=== PATIENT | male | born 1980 | race Caucasian/White ===

== ENCOUNTER 2025-02-16 10:11 | Inpatient (IN) ==
--- NOTE | 2025-02-16 10:18 | Emergency Department Note ---
Impression & Plan Complex laceration of face Admission ED Provider Note HPI: History obtained from patient. The patient is a 44-year-old gentleman who presents the emergency department with a facial injury. Patient presents as a trauma alert. Patient states he was using a handicapped teacher in his home garage when it kicked back up and hit him in the face. Patient sustained a large laceration to the left side of the face that crosses over the left side of the nose to the nasal bridge. Minimal active bleeding is noted on arrival. Patient is not having any issues breathing, he is alert and able to speak in full sentences on arrival. Patient denies any neck pain, denies any head injuries. *Cervical spine was cleared clinically at 10:15 AM, patient has full range of motion of the cervical spine without any limitation or pain ROS: - Per HPI Differential Diagnosis: Nasal bone fracture, maxillary fracture/orbital fracture/facial fracture, ocular injury, dental injury, amongst other potential pathologies. *Outpatient medications and allergy history reviewed. PRIMARY SURVEY: Airway-intact, patient speaks in full sentences Respiratory-clear bilateral breath sounds Circulation-2+ DP pulses bilaterally, 2+ radial pulses bilaterally Neurologic-patient is alert Exposure-large laceration to the left side of the face, otherwise no evidence of any open wounds or lacerations are noted Secondary survey: General: Alert HEENT: Normocephalic, trachea midline, laceration extending across the left side of the face horizontally with minimal active bleeding, measuring approximately 8 cm extending over the nasal bridge, uvula is midline, there is no evidence of any posterior pharyngeal erythema or swelling Eyes: Extraocular eye movement is intact, no scleral erythema Pulmonary: Clear to auscultation bilaterally, no wheezing Cardio: Regular rate and rhythm GI: Abdomen is soft to palpation : No suprapubic tenderness MSK: No evidence of trauma or malformation of the extremities, no edema Skin: No evidence of rash Neuro: Alert, no focal deficits Psychiatric: Cooperative INDEPENDENT INTERPRETATIONS: event technician: (As interpreted by myself): - An order was placed for continuous cardiac monitoring - Patient was noted to be in sinus rhythm with a rate of 95 Chest x-ray: (As interpreted by myself): No acute disease Interventions provided in ED: - Tdap, IV Unasyn, IV fluid bolus, IV morphine, IV Zofran Medical Decision Making: IV was established and lab work obtained, patient was placed on radiophone operator. Lab work shows no leukocytosis, hemoglobin is normal, platelet count is normal, CMP does not show any evidence of any critical findings. CT of the head does not show any evidence of any acute intracranial injury, CT imaging of the facial shows evidence of a comminuted bilateral nasal bone fracture as well as a depressed maxilla fracture on the left side. Patient denies any ocular injury, his exam of the eyes is grossly unremarkable. He states his vision is intact. He denies any foreign body sensation. I discussed the patient's presentation with on-call OMFS, Dr. Sorto, he did evaluate the patient at the bedside. Following his evaluation he recommended admission and operative intervention this afternoon. Patient was treated with IV Unasyn for infection prophylaxis, he was given IV morphine and IV Zofran here in the ED for pain. Tetanus was updated. Patient was in agreement for admission and he was placed for admission in stable condition for further management. Patient's presentation was discussed with the on-call hospitalist, Dr. Yepez. Consultants/Discussions held with other healthcare providers: - OMFSDr. Sorto - Hospitalist, Dr. Yepez Disposition discussion held by myself with: - Patient Diagnosis: 1. Facial laceration, acute 2. Comminuted bilateral nasal bone fracture, acute 3. Left-sided maxillary fracture, acute Disposition: Admission Kieran George DO Emergency Medicine Past Med/Surg History Problem List (Updated 02/16/25 @ 14:32 by Kieran George DO) Complex laceration of face (Acute) Complex laceration of face Nasal bones, open fracture Hyperlipidemia Medical History (Updated 02/16/25 @ 14:32 by Kieran George DO) Hyperlipidemia Surgical History Hx of appendectomy 1994 Family History Mother Breast cancer, Onset Age: 65 Diabetes Myasthenia gravis Grandmother (Maternal) Breast cancer Father Skin cancer Hypertension Denies family history of Ovarian cancer Prostate cancer Myocardial infarction Colorectal cancer Social History Smoking Status: Never smoker Second Hand Exposure: No; Do You Dip or Chew Tobacco: No; Hx Alcohol Use: Yes Alcohol Intake Frequency: 2-4 x/Month Alcohol Intake Frequency Comment: socially Hx Substance Use: No Preferred Language: Monegasque Communication Ability: Effective Visual Impairment: No Limitations Hearing Ability: Normal Photographic Process Attendant Required: No Beliefs That Will Affect Care: None marital status: Current Living Situation: Spouse current occupational status: employed 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 How many Children do You have: 0 Feels Safe at Home: Yes Childhood Exposure to Second-Hand Smoke: Yes Diet: regular Diet Comment: Regular caffeine: Yes during the past year weight has: remained stable Dental Care, Regularly: Yes Physical Activity Frequency: 1-2 Times per Week Physical Activity Frequency Comment: Irregular Seatbelt Use: always Sunscreen Use: Yes Assistive Devices: Glasses Allergies Allergies Allergy/AdvReac Type Severity Reaction Status Date / Time No Known Drug Allergies Allergy Unknown Unverified 12/20/23 09:52 Home Meds Home Medications Medication Instructions Recorded Confirmed atorvastatin 20 mg tablet 0 mg PO QPM 02/16/25 02/16/25 Results & Data (ED) Vital Signs Vital Signs - 24 hr 02/16/25 10:22 02/16/25 10:23 02/16/25 10:26 Temperature 36.5 C Temperature Source Oral Pulse Rate 98 H 95 H Pulse Rate [Apical] Pulse Rate from SpO2 Sensor Pulse Rhythm [Apical] Pulse Strength [Apical] Respiratory Rate 13 Respiratory Effort / Characteristics Respiratory Depth Respiratory Pattern Blood Pressure 154/100 H Blood Pressure [Left Arm] Blood Pressure Mean 118 Blood Pressure Mean [Left Arm] Blood Pressure Position [Left Arm] Pulse Oximetry 98 Oxygen Delivery Method Room Air Oxygen Flow Rate Sepsis Recent Fever Within 48 Hours No Sepsis New/Unexplained Change in Mental Status N/A Sepsis Action Taken by Nursing No Action Required 02/16/25 10:26 02/16/25 10:27 02/16/25 10:27 Temperature 36.5 C 36.5 C 36.5 C Temperature Source Oral Oral Pulse Rate 95 H Pulse Rate [Apical] 94 H 98 H Pulse Rate from SpO2 Sensor Pulse Rhythm [Apical] Pulse Strength [Apical] Respiratory Rate 17 20 17 Respiratory Effort / Characteristics Respiratory Depth Respiratory Pattern Blood Pressure 154/100 H Blood Pressure [Left Arm] 154/100 H 154/100 H Blood Pressure Mean Blood Pressure Mean [Left Arm] 118 118 Blood Pressure Position [Left Arm] Pulse Oximetry 98 98 98 Oxygen Delivery Method Room Air Room Air Room Air Oxygen Flow Rate 0 Sepsis Recent Fever Within 48 Hours Sepsis New/Unexplained Change in Mental Status Sepsis Action Taken by Nursing 02/16/25 10:57 02/16/25 10:58 02/16/25 11:20 Temperature Temperature Source Pulse Rate 97 H Pulse Rate [Apical] 90 Pulse Rate from SpO2 Sensor 98 H Pulse Rhythm [Apical] Regular Pulse Strength [Apical] Normal Respiratory Rate 15 20 Respiratory Effort / Characteristics Non-Labored Spontaneous Respiratory Depth Normal Respiratory Pattern Regular Blood Pressure 164/96 H Blood Pressure [Left Arm] 159/97 H Blood Pressure Mean 129 Blood Pressure Mean [Left Arm] 117 Blood Pressure Position [Left Arm] Lying Pulse Oximetry 97 96 Oxygen Delivery Method Room Air Oxygen Flow Rate Sepsis Recent Fever Within 48 Hours Sepsis New/Unexplained Change in Mental Status Sepsis Action Taken by Nursing 02/16/25 12:00 02/16/25 12:20 02/16/25 13:00 Temperature Temperature Source Pulse Rate Pulse Rate [Apical] 89 89 93 H Pulse Rate from SpO2 Sensor Pulse Rhythm [Apical] Regular Regular Pulse Strength [Apical] Normal Normal Respiratory Rate 20 22 Respiratory Effort / Characteristics Non-Labored Spontaneous Non-Labored Spontaneous Respiratory Depth Normal Normal Respiratory Pattern Regular Regular Blood Pressure Blood Pressure [Left Arm] 167/98 H 167/98 H 165/91 H Blood Pressure Mean Blood Pressure Mean [Left Arm] 121 121 115 Blood Pressure Position [Left Arm] Lying Lying Pulse Oximetry 98 96 Oxygen Delivery Method Room Air Room Air Oxygen Flow Rate Sepsis Recent Fever Within 48 Hours Sepsis New/Unexplained Change in Mental Status Sepsis Action Taken by Nursing 02/16/25 13:40 02/16/25 14:00 02/16/25 14:14 Temperature Temperature Source Pulse Rate Pulse Rate [Apical] 84 98 H Pulse Rate from SpO2 Sensor Pulse Rhythm [Apical] Pulse Strength [Apical] Respiratory Rate 12 16 Respiratory Effort / Characteristics Non-Labored Spontaneous Non-Labored Spontaneous Respiratory Depth Normal Normal Respiratory Pattern Blood Pressure Blood Pressure [Left Arm] 153/90 H 146/95 H Blood Pressure Mean Blood Pressure Mean [Left Arm] 111 112 Blood Pressure Position [Left Arm] Pulse Oximetry 98 98 Oxygen Delivery Method Room Air Room Air Room Air Oxygen Flow Rate Sepsis Recent Fever Within 48 Hours Sepsis New/Unexplained Change in Mental Status Sepsis Action Taken by Nursing Laboratory Data 02/16/25 10:22 02/16/25 10:22 Lab Results 02/16/25 Range/Units 10:22 WBC 5.47 (4.8-10.8) K/ul RBC 5.25 (4.70-6.10) M/uL Hgb 16.0 (14.0-18.0) g/dl Hct 44.6 (42.0-52.0) % MCV 85.0 (80.0-100.0) fL MCH 30.5 (25.0-34.0) pg MCHC 35.9 (32.0-36.0) g/dL RDW Std Deviation 37.8 (36.4-46.3) fL RDW Coeff of Savage 12.2 (11.5-14.5) % Plt Count 203 (130-400) K/uL MPV 10.7 (9.4-12.4) fL Immature Gran % (Auto) 0.2 % Neut % (Auto) 45.6 % Lymph % (Auto) 36.9 % Pratt % (Auto) 13.5 % Eos % (Auto) 2.9 % Baso % (Auto) 0.9 % Neut # (Auto) 2.49 (1.40-6.50) K/uL Lymph # (Auto) 2.02 (1.20-3.40) K/uL Pratt # (Auto) 0.74 H (0.11-0.59) K/uL Eos # (Auto) 0.16 (0.00-0.50) K/uL Baso # (Auto) 0.05 (0.00-0.20) K/uL Immature Gran # (Auto) 0.01 (0.01-0.20) K/uL Sodium 137 (136-145) mmol/L Potassium 3.4 L (3.5-5.1) mmol/L Chloride 103 (98-107) mmol/L Carbon Dioxide 26 (21-32) mmol/L Anion Gap 8 (3-11) BUN 13 (6-23) mg/dl Creatinine 1.08 (0.6-1.4) mg/dl Est Cr Clr Drug Dosing 87.3 ml/min eGFR 86.78 BUN/Creatinine Ratio 12.0 (10-20) Glucose 109 H (70-99(Fasting)) mg/dl Calcium 9.5 (8.6-10.3) mg/dl Administered Medications Discontinued Medications Diphtheria/Pertussis/Tetanus Vacc (Diphther/Tetan/Pertus Vaccine (Tdap, Adol/Adult) 0.5ml) 0.5 ml IM .ONCE ONE Stop: 02/16/25 10:45 Last Admin: 02/16/25 10:54 Dose: 0.5 ml Documented By: RACHEL Sodium Chloride (Nss) 500 mls @ 999 mls/hr IV .Q31M ONE Stop: 02/16/25 10:51 Last Admin: 02/16/25 10:54 Dose: 999 mls/hr Documented By: RACHEL Ampicillin Sodium/Sulbactam Sodium (Unasyn) 3,000 mg in 100 mls @ 200 mls/hr IV NOW STA Stop: 02/16/25 12:57 Last Infusion: 02/16/25 13:54 Dose: Infused Documented By: Admin: 02/16/25 13:06 Dose: 200 mls/hr Documented By: SHUN Morphine Sulfate (Morphine Sulfate 4 Mg/Ml 1 Ml Carp\Vial) 4 mg IV NOW STA Stop: 02/16/25 10:44 Last Admin: 02/16/25 10:54 Dose: 4 mg Documented By: RACHEL Ondansetron HCl (Ondansetron Inj 2 Mg/Ml 2 Ml Vial) 4 mg IV NOW STA Stop: 02/16/25 10:44 Last Admin: 02/16/25 10:54 Dose: 4 mg Documented By: RACHEL Imaging Data Radiologist's Impression: Chest X-Ray 02/16/25 00:00 XR chest 1V portable CLINICAL HISTORY: TRAUMA COMPARISON STUDY: None FINDINGS: Heart size and pulmonary vasculature are normal. No consolidation or pleural effusion. No pneumothorax. IMPRESSION: No acute findings. ACT 112: Negative or not required by law. Electronically signed by: Dickson Downs M.D. 02/16/2025 10:[address] 02/16/25 10:16 CT SCAN OF THE FACIAL BONES WITHOUT IV CONTRAST CLINICAL HISTORY: Left facial injury/laceration. COMPARISON STUDY: CT of the brain dated 06/28/2024 TECHNIQUE: High-resolution CT scan of the facial bones is performed. Images are reviewed in the axial, sagittal, and coronal planes. IV contrast was not administered for this examination. A dose lowering technique was utilized adhering to the principles of ALARA. FINDINGS: The skeletal structures are well mineralized. There are comminuted bilateral nasal bone fractures with displaced and depressed fragments. There is also a depressed fracture through the left frontal process of the maxilla. The bony nasal septum appears intact noting leftward deviation. No additional facial bone fracture is seen. The bony orbits are intact and the orbital contents are within normal limits. The zygomatic arches and pterygoid plates are preserved. The mandible is intact and the temporomandibular joints are maintained. There are no layering blood products within the paranasal sinuses. There is trace mucosal thickening and a 1.9 cm retention cyst in the left maxillary sinus. The remaining paranasal sinuses are clear. The mastoid air cells are well pneumatized. The visualized calvarium and upper cervical spine are maintained. Partially imaged brain parenchyma is within normal limits. There is left premalar soft tissue injury/laceration, as well as soft tissue edema overlying the nasal bones. IMPRESSION: 1. There are comminuted bilateral nasal bone fractures with displaced and depressed fragments. 2. There is also a depressed fracture of the left frontal process of the maxilla. 3. No additional facial bone fracture is seen. The bony orbits are intact. 4. Left premalar soft tissue injury/laceration. ACT 112: Negative or not required by law. Electronically signed by: Mahesh Phillip M.D. 02/16/2025 11:[address] 02/16/25 10:16 CT head/brain wo con CLINICAL HISTORY: facial injury/blunt trauma. TECHNIQUE: Multiple axial CT images of the head were obtained without contrast. A dose lowering technique was utilized adhering to the principles of ALARA. CT DOSE: 858.1 mGy.cm COMPARISON: 08/29/2023 FINDINGS: There is stable cavum septum pellucidum, anatomic variant. No intracranial hemorrhage seen. No mass effect, midline shift, or hydrocephalus. Nasal bone fracture is partially visualized. No skull fracture seen otherwise. IMPRESSION: 1. No acute intracranial findings. 2. Nasal bone fracture. ACT 112: Negative or not required by law. The above report was generated using voice recognition software. It may contain grammatical, syntax or spelling errors. Electronically signed by: Dickson Downs M.D. 02/16/2025 10:50 AM Discharge Plan Visit Data Chief Complaint: Trauma Stated Complaint: TRAUMA ALERT ED Provider: Kieran George Discharge Problem: Complex laceration of face Patient Disposition: Admitted As Inpatient Condition: Fair Discharge Instructions Interventions: ED Discharge Assessment Last Done: 02/16/25 14:14 Forms Stand Alone Forms: My [employer] Prescriptions Prescriptions: No Action atorvastatin 20 mg tablet 0 mg PO QPM Patient Comments: 02/16- last filled 12/25 30 day supply #30 Referrals Referrals: Taryn Ricci DO [Primary Care Provider] - Discharge Problem: Complex laceration of face Qualifiers: Encounter type: initial encounter Qualified Code(s): S01.91XA - Laceration without foreign body of unspecified part of head, initial encounter
--- NOTE | 2025-02-16 10:24 | XRay Report ---
XR chest 1V portable CLINICAL HISTORY: TRAUMA COMPARISON STUDY: None FINDINGS: Heart size and pulmonary vasculature are normal. No consolidation or pleural effusion. No p neumothorax. IMPRESSION: No acute findings. ACT 112: Negative or not required by law. Electronically signed by: Dickson Downs M.D. 02/16/2025 10:23 AM
[2025-02-16 10:39] LABS: Hematocrit (blood only) 44.6 % (42.0-52.0); Hemoglobin 16.0 g/dl (14.0-18.0); Immature Granulocytes # (auto) 0.01 K/uL (0.01-0.20); Immature Granulocytes % (auto) 0.2 %; Mean Corpuscular Hemoglobin 30.5 pg (25.0-34.0); Mean Corpuscular Volume 85.0 fL (80.0-100.0); Platelet Count 203 K/uL (130-400); RDW Standard Deviation 37.8 fL (36.4-46.3); Red Blood Count 5.25 M/uL (4.70-6.10); White Blood Count 5.47 K/ul (4.8-10.8)
--- NOTE | 2025-02-16 10:52 | CT Scan Report ---
CT head/brain wo con CLINICAL HISTORY: facial injury/blunt trauma. TECHNIQUE: Multiple axial CT images of the head were obtained without contrast. A dose lowering tech nique was utilized adhering to the principles of ALARA. CT DOSE: 858.1 mGy.cm COMPARISON: 08/29/2023 FINDINGS: There is stable cavum septum pellucidum, anatomic variant. No intracranial hemorrhage seen. No mass effect, midline shift, or hydrocephalus. Nasal bone fracture is partially visualized. No skull fracture seen otherwise. IMPRESSION: 1. No acute intracranial findings. 2. Nasal bone fracture. ACT 112: Negative or not required by law. The above report was generated using voice recognition software. It may contain grammatical, syntax o r spelling errors. Electronically signed by: Dickson Downs M.D. 02/16/2025 10:50 AM
[2025-02-16 10:53] LABS: Anion Gap 8.0 (3-11); Blood Urea Nitrogen 13.0 mg/dl (6-23); Calcium 9.5 mg/dl (8.6-10.3); Carbon Dioxide 26.0 mmol/L (21-32); Chloride 103.0 mmol/L (98-107); Creatinine Clr Calc Pharmacy 87.3 ml/min; Glucose 109.0 mg/dl (70-99(Fasting)); Potassium 3.4 mmol/L (3.5-5.1); Sodium 137.0 mmol/L (136-145)
[2025-02-16] MEDS: SODIUM CHLORIDE 0.9% 500 ML IV ONE (10:54)
[2025-02-16] MEDS: MoRPHine SULFATE 4 MG/ML 1 ML CARP\\VIAL IV STA (10:54)
[2025-02-16] MEDS: DIPHTHER/TETAN/PERTUS Vaccine (Tdap, Adol/Adult) 0.5mL IM ONE (10:54)
[2025-02-16] MEDS: ONDANSETRON INJ 2 MG/ML 2 ML VIAL IV STA (10:54)
--- NOTE | 2025-02-16 11:19 | CT Scan Report ---
CT SCAN OF THE FACIAL BONES WITHOUT IV CONTRAST CLINICAL HISTORY: Left facial injury/laceration. COMPARISON STUDY: CT of the brain dated 06/28/2024 TECHNIQUE: High-resolution CT scan of the facial bones is performed. Images are reviewed in the axia l, sagittal, and coronal planes. IV contrast was not administered for this examination. A dose lower ing technique was utilized adhering to the principles of ALARA. FINDINGS: The skeletal structures are well mineralized. There are comminuted bilateral nasal bone fra ctures with displaced and depressed fragments. There is also a depressed fracture through the left fr ontal process of the maxilla. The bony nasal septum appears intact noting leftward deviation. No daja tional facial bone fracture is seen. The bony orbits are intact and the orbital contents are within n ormal limits. The zygomatic arches and pterygoid plates are preserved. The mandible is intact and the temporomandibular joints are maintained. There are no layering blood products within the paranasal s inuses. There is trace mucosal thickening and a 1.9 cm retention cyst in the left maxillary sinus. Th e remaining paranasal sinuses are clear. The mastoid air cells are well pneumatized. The visualized c alvarium and upper cervical spine are maintained. Partially imaged brain parenchyma is within normal limits. There is left premalar soft tissue injury/laceration, as well as soft tissue edema overlying the nasal bones. IMPRESSION: 1. There are comminuted bilateral nasal bone fractures with displaced and depressed fragments. 2. There is also a depressed fracture of the left frontal process of the maxilla. 3. No additional facial bone fracture is seen. The bony orbits are intact. 4. Left premalar soft tissue injury/laceration. ACT 112: Negative or not required by law. Electronically signed by: Mahesh Phillip M.D. 02/16/2025 11:18 AM
[2025-02-16] MEDS: AMPICILLIN/SULBACTAM SOD 3,000 MG/100 ML BAG IV STA (13:06)
--- NOTE | 2025-02-16 13:25 | Oral/Maxillofacial Consult ---
Date of Consultation February 16, 2025 Assessment & Plan (1) Nasal bones, open fracture: (2) Complex laceration of face: left cheek 6 cm complex History of Present Illness History of Present Illness Oral Maxillofacial Surgery Exam The patient is a 44-year-old gentleman who presents the emergency department with a facial injury. Patient presents as a trauma alert. Patient states he was using a yarn handler in his home garage when it kicked back up and hit him in the face. Patient sustained a large laceration to the left side of the face that crosses over the left side of the nose to the nasal bridge. Minimal active bleeding is noted on arrival. Patient is not having any issues breathing, he is alert and able to speak in full sentences on arrival. Patient denies any neck pain, denies any head injuries. CT SCAN OF THE FACIAL BONES WITHOUT IV CONTRAST CLINICAL HISTORY: Left facial injury/laceration. FINDINGS: The skeletal structures are well mineralized. There are comminuted bilateral nasal bone fractures with displaced and depressed fragments. There is also a depressed fracture through the left frontal process of the maxilla. The bony nasal septum appears intact noting leftward deviation. No additional facial bone fracture is seen. The bony orbits are intact and the orbital contents are within normal limits. The zygomatic arches and pterygoid plates are preserved. The mandible is intact and the temporomandibular joints are maintained. There are no layering blood products within the paranasal sinuses. There is trace mucosal thickening and a 1.9 cm retention cyst in the left maxillary sinus. The remaining paranasal sinuses are clear. The mastoid air cells are well pneumatized. The visualized calvarium and upper cervical spine are maintained. Partially imaged brain parenchyma is within normal limits. There is left premalar soft tissue injury/laceration, as well as soft tissue edema overlying the nasal bones. IMPRESSION: 1. There are comminuted bilateral nasal bone fractures with displaced and depressed fragments. 2. There is also a depressed fracture of the left frontal process of the maxilla. 3. No additional facial bone fracture is seen. The bony orbits are intact. 4. Left premalar soft tissue injury/laceration. Soft tissue: A complex deep laceration from the bridge of the nose across the cheek below the eye 6 cm long and deep to muscle. Facial nerve is in tack. Head/Neck exam: Neck is supple, FROM, Able to extend and flex neck w/o difficulty, no masses, no abnormalities, no airway issues, Cervical spine was cleared clinically at 10:15 AM, patient has full range of motion of the cervical spine without any limitation or pain Treatment Plan: Set up with general anesthesia in hospital due to complexity of the procedure I reviewed the treatment plan and consent with the patient and his Understanding was expressed. Time was given for questions regarding the surgery, risks and post op care. Discussed alternative to treatment--procedure as planned, Do not do surgery Closed/open reduction of the nasal fracture, repair of the complex facial laceration. Risks discussed: Bleeding,Pain,swelling,infection, scaring , delayed healing, nerve injury to face,lips,tongue,chin area which could be permanent (rare). Nasal congestion, need for revision of the scar and nose. Home care reviewed: Wound care Follow up Splint removal Surgery to be set up this afternoon as an add on case Allergies Allergy/AdvReac Type Severity Reaction Status Date / Time No Known Drug Allergies Allergy Unknown Unverified 12/20/23 09:52 Home Medications Medication Instructions Recorded Confirmed Type atorvastatin 20 mg tablet 0 mg PO QPM 02/16/25 02/16/25 History Patient History Surgical History Hx of appendectomy Family History Mother Breast cancer, Onset Age: 65 Diabetes Myasthenia gravis Grandmother (Maternal) Breast cancer Father Skin cancer Hypertension Denies family history of Ovarian cancer Prostate cancer Myocardial infarction Colorectal cancer Social History Smoking Status: Never smoker Second Hand Exposure: No; Do You Dip or Chew Tobacco: No; Hx Alcohol Use: Yes Alcohol Intake Frequency: 2-4 x/Month Alcohol Intake Frequency Comment: socially Hx Substance Use: No Preferred Language: Guyanese Communication Ability: Effective Visual Impairment: No Limitations Hearing Ability: Normal Oil Expeller Operator Required: No Beliefs That Will Affect Care: None marital status: Current Living Situation: Spouse current occupational status: employed 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 How many Children do You have: 0 Feels Safe at Home: Yes Childhood Exposure to Second-Hand Smoke: Yes Diet: regular Diet Comment: Regular caffeine: Yes during the past year weight has: remained stable Dental Care, Regularly: Yes Physical Activity Frequency: 1-2 Times per Week Physical Activity Frequency Comment: Irregular Seatbelt Use: always Sunscreen Use: Yes Assistive Devices: Glasses Results & Data Vital Signs (Past 12 Hours) Vital Signs Temp Pulse Pulse Resp BP BP Pulse Ox 02/16/25 13:00 93 H 22 165/91 H 96 02/16/25 12:20 89 20 167/98 H 98 02/16/25 12:00 89 167/98 H 02/16/25 11:20 90 20 159/97 H 96 02/16/25 10:58 164/96 H 02/16/25 10:57 97 H 15 97 02/16/25 10:27 36.5 C 98 H 17 154/100 H 98 02/16/25 10:27 36.5 C 95 H 20 154/100 H 98 02/16/25 10:26 36.5 C 94 H 17 154/100 H 98 02/16/25 10:26 98 02/16/25 10:23 95 H 02/16/25 10:22 36.5 C 98 H 13 154/100 H O2 Del Method O2 Flow Rate 02/16/25 13:00 Room Air 02/16/25 12:20 Room Air 02/16/25 12:00 02/16/25 11:20 Room Air 02/16/25 10:58 02/16/25 10:57 02/16/25 10:27 Room Air 02/16/25 10:27 Room Air 0 02/16/25 10:26 Room Air 02/16/25 10:26 Room Air 02/16/25 10:23 02/16/25 10:22 PG Care Time/CCT Total # of Minutes Spent Total Time Spent with Patient: Total time spent is greater than 50% in coordination of care (as documented) at patient's floor/unit and/or counseling patient: Coding Level of Care Code 71194 OFFICE CONSULT LVL Diagnoses Open fracture of nasal bone, initial encounter S02.2XXB Encounter type: initial encounter Complex laceration of face, initial encounter S01.91XA Encounter type: initial encounter (1) Nasal bones, open fracture Encounter type: initial encounter Qualified Code(s): S02.2XXB - Fracture of nasal bones, initial encounter for open fracture (2) Complex laceration of face Encounter type: initial encounter Qualified Code(s): S01.91XA - Laceration without foreign body of unspecified part of head, initial encounter
--- NOTE | 2025-02-16 13:47 | History & Physical Report ---
Date of Service February 16, 2025 Assessment & Plan (1) Complex laceration of face: (2) Nasal bones, open fracture: (3) Hyperlipidemia: Plan Mr. Yovani Rosario ia a 44 yo male with PMH of hyperlipidemia. 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 large laceration of the left side of the face. cross over to the nose to the nasal bridge. his CT scan show comminuted b/l nasal bone fracture with displaced and depressed fragment. also found depressed fracture of the left frontal process of the maxilla. left premalara soft tissue injury patient seen by oral maxillary surgery Dr. Sorto, plan for close/open reduction of the nasal fracture and repair of the complex facial laceration. started on unasyn. 1. complex deep laceration from the bridge of the nose across the cheek 2. communicated b/l nasal bone fractures 3. depressed fracgture of the left frontal process of the maxillary 4. HLD on lipitor plan closed/open reduction of the nasal fracture repair of the complex facial laceration c/w unasyn. discussed avoid of sun in post-op period. History of Present Illness Chief Complaint: large laceration on left facial region facial cellulitis needing IV antibiotics nasal bone fracture Primary Care Provider: Taryn Ricci DO Mr. Yovani Rosario is a 44 yo male with PMH of hyperlipidemia. on 02/16/2025, he's presented to [facility] with trauma alert. he's was using a foundry hand in his home garage when it's kicked back up and hit him in the face he's has a large laceration to the left side of the face that cross of the left nose to the nasal bridge he has CT head which found nasal bone fracture, has had normal neck range of motion he's was s/p tetanus shot and IV unasyn. seen by billing specialist, Dr. Flaco Sorto, plan for surgery today on interview, he's denied chest pain, denied shortness of breath he's mentioned headache episode after receiving morphine. Allergies Allergy/AdvReac Type Severity Reaction Status Date / Time No Known Drug Allergies Allergy Unknown Unverified 12/20/23 09:52 Home Medications Medication Instructions Recorded Confirmed Type atorvastatin 20 mg tablet 0 mg PO QPM 02/16/25 02/16/25 History Past Med/Surg History Problem List (Updated 02/16/25 @ 13:36 by Flaco Sorto DMD) Complex laceration of face Nasal bones, open fracture Hyperlipidemia Surgical History Hx of appendectomy Family History Mother Breast cancer, Onset Age: 65 Diabetes Myasthenia gravis Grandmother (Maternal) Breast cancer Father Skin cancer Hypertension Denies family history of Ovarian cancer Prostate cancer Myocardial infarction Colorectal cancer Social History Smoking Status: Never smoker Second Hand Exposure: No; Do You Dip or Chew Tobacco: No; Hx Alcohol Use: Yes Alcohol Intake Frequency: 2-4 x/Month Alcohol Intake Frequency Comment: socially Hx Substance Use: No Preferred Language: Austrian Communication Ability: Effective Visual Impairment: No Limitations Hearing Ability: Normal Veneer 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 Required: No Beliefs That Will Affect Care: None marital status: Current Living Situation: Spouse current occupational status: employed 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 How many Children do You have: 0 Feels Safe at Home: Yes Childhood Exposure to Second-Hand Smoke: Yes Diet: regular Diet Comment: Regular caffeine: Yes during the past year weight has: remained stable Dental Care, Regularly: Yes Physical Activity Frequency: 1-2 Times per Week Physical Activity Frequency Comment: Irregular Seatbelt Use: always Sunscreen Use: Yes Assistive Devices: Glasses Review of Systems Review of Systems: Constitutional: No Weight Change, No Fever, No Chills, No Night Sweats, No Fatigue, No Malaise ENT/Mouth: No Hearing Changes, No Ear Pain, No Nasal Congestion, No Sinus Pain, No Hoarseness, No sore throat, No Rhinorrhea, No Swallowing Difficulty Eyes: No Eye Pain, No Swelling, No Redness, No Foreign Body, No Discharge, No Vision Changes Cardiovascular: No Chest Pain, No SOB, No PND, No Dyspnea on Exertion,No Claudication, No Edema, No Palpitations Respiratory: No Cough, No Sputum, No Wheezing, No Smoke Exposure, No Dyspnea Gastrointestinal: No Nausea, No Vomiting, No Diarrhea, No Constipation, No Pain, No Heartburn, No Anorexia, No Dysphagia, No Hematochezia, No Melena, No Flatulence, No Jaundice Skin: No Skin Lesions, No Pruritis, No Hair Changes, No Breast/Skin Changes, No Nipple Discharge Neuro: No Weakness, No Numbness, No Paresthesias, No Loss of Consciousness, No Syncope, No Dizziness, No Headache, No Coordination Changes, No Recent Falls Psych: No Anxiety/Panic, No Depression, No Insomnia, No Personality Changes, No Delusions, No Rumination, No SI/HI/AH/VH, No Social Issues, No Memory Changes, No Violence/Abuse Hx., No Eating Concerns Physical Exam Physical Exam: VITALS: Reviewed. WEIGHT/BMI reviewed. GEN: Healthy appearing, well-developed, NAD. PSYCH: Good Judgment. AOx3. Normal memory, mood, and affect. HEENT -Head: NC/AT; + for large laceration in the left side of the face Neuro: AAOx3; following command -Nose: Normal nares. NECK: Supple, with no masses. CV: RRR, no m/r/g. LUNGS: CTAB, no w/r/c. ABD: Soft, NT/ND, NBS, no masses or organomegaly. : N/A SKIN: Warm, well perfused. No skin rashes or abnormal lesions. MSK: No deformities, Normal gait. EXT: No clubbing, cyanosis, or edema. Results & Data Results & Data Vital Signs (Past 12 Hours) Vital Signs Temp Pulse Pulse Resp BP BP Pulse Ox 02/16/25 13:00 93 H 22 165/91 H 96 02/16/25 12:20 89 20 167/98 H 98 02/16/25 12:00 89 167/98 H 02/16/25 11:20 90 20 159/97 H 96 02/16/25 10:58 164/96 H 02/16/25 10:57 97 H 15 97 02/16/25 10:27 36.5 C 98 H 17 154/100 H 98 02/16/25 10:27 36.5 C 95 H 20 154/100 H 98 02/16/25 10:26 36.5 C 94 H 17 154/100 H 98 02/16/25 10:26 98 02/16/25 10:23 95 H 02/16/25 10:22 36.5 C 98 H 13 154/100 H O2 Del Method O2 Flow Rate 02/16/25 13:00 Room Air 02/16/25 12:20 Room Air 02/16/25 12:00 02/16/25 11:20 Room Air 02/16/25 10:58 02/16/25 10:57 02/16/25 10:27 Room Air 02/16/25 10:27 Room Air 0 02/16/25 10:26 Room Air 02/16/25 10:26 Room Air 02/16/25 10:23 02/16/25 10:22 Laboratory Results Laboratory Results - last 72 hr 02/16/25 10:22 WBC 5.47 RBC 5.25 Hgb 16.0 Hct 44.6 MCV 85.0 MCH 30.5 MCHC 35.9 RDW Std Deviation 37.8 RDW Coeff of [place] 12.2 Plt Count 203 MPV 10.7 Immature Gran % (Auto) 0.2 Neut % (Auto) 45.6 Lymph % (Auto) 36.9 [place] % (Auto) 13.5 Eos % (Auto) 2.9 Baso % (Auto) 0.9 Neut # (Auto) 2.49 Lymph # (Auto) 2.02 [place] # (Auto) 0.74 H Eos # (Auto) 0.16 Baso # (Auto) 0.05 Immature Gran # (Auto) 0.01 Sodium 137 Potassium 3.4 L Chloride 103 Carbon Dioxide 26 Anion Gap 8 BUN 13 Creatinine 1.08 Est Cr Clr Drug Dosing 87.3 eGFR 86.78 BUN/Creatinine Ratio 12.0 Glucose 109 H Calcium 9.5 Diagnostic Findings Laboratory Results WBC 5.47 K/ul (4.8-10.8) 02/16/25 10:22 RBC 5.25 M/uL (4.70-6.10) 02/16/25 10:22 Hgb 16.0 g/dl (14.0-18.0) 02/16/25 10:22 Hct 44.6 % (42.0-52.0) 02/16/25 10:22 MCV 85.0 fL (80.0-100.0) 02/16/25 10:22 MCH 30.5 pg (25.0-34.0) 02/16/25 10:22 MCHC 35.9 g/dL (32.0-36.0) 02/16/25 10:22 RDW Std Deviation 37.8 fL (36.4-46.3) 02/16/25 10:22 RDW Coeff of [place] 12.2 % (11.5-14.5) 02/16/25 10:22 Plt Count 203 K/uL (130-400) 02/16/25 10:22 MPV 10.7 fL (9.4-12.4) 02/16/25 10:22 Immature Gran % (Auto) 0.2 % 02/16/25 10:22 Neut % (Auto) 45.6 % 02/16/25 10:22 Lymph % (Auto) 36.9 % 02/16/25 10:22 [place] % (Auto) 13.5 % 02/16/25 10:22 Eos % (Auto) 2.9 % 02/16/25 10:22 Baso % (Auto) 0.9 % 02/16/25 10:22 Neut # (Auto) 2.49 K/uL (1.40-6.50) 02/16/25 10:22 Lymph # (Auto) 2.02 K/uL (1.20-3.40) 02/16/25 10:22 [place] # (Auto) 0.74 K/uL (0.11-0.59) H 02/16/25 10:22 Eos # (Auto) 0.16 K/uL (0.00-0.50) 02/16/25 10:22 Baso # (Auto) 0.05 K/uL (0.00-0.20) 02/16/25 10:22 Immature Gran # (Auto) 0.01 K/uL (0.01-0.20) 02/16/25 10:22 Sodium 137 mmol/L (136-145) 02/16/25 10:22 Potassium 3.4 mmol/L (3.5-5.1) L 02/16/25 10:22 Chloride 103 mmol/L (98-107) 02/16/25 10:22 Carbon Dioxide 26 mmol/L (21-32) 02/16/25 10:22 Anion Gap 8 (3-11) 02/16/25 10:22 BUN 13 mg/dl (6-23) 02/16/25 10:22 Creatinine 1.08 mg/dl (0.6-1.4) 02/16/25 10:22 Est Cr Clr Drug Dosing 87.3 ml/min 02/16/25 10:22 eGFR 86.78 02/16/25 10:22 BUN/Creatinine Ratio 12.0 (10-20) 02/16/25 10:22 Glucose 109 mg/dl (70-99(Fasting)) H 02/16/25 10:22 Calcium 9.5 mg/dl (8.6-10.3) 02/16/25 10:22 Impressions Chest X-Ray 02/16/25 00:00 XR chest 1V portable CLINICAL HISTORY: TRAUMA COMPARISON STUDY: None FINDINGS: Heart size and pulmonary vasculature are normal. No consolidation or pleural effusion. No pneumothorax. IMPRESSION: No acute findings. ACT 112: Negative or not required by law. Electronically signed by: Dickson Downs M.D. 02/16/2025 10:[address] 02/16/25 10:16 CT SCAN OF THE FACIAL BONES WITHOUT IV CONTRAST CLINICAL HISTORY: Left facial injury/laceration. COMPARISON STUDY: CT of the brain dated 06/28/2024 TECHNIQUE: High-resolution CT scan of the facial bones is performed. Images are reviewed in the axial, sagittal, and coronal planes. IV contrast was not administered for this examination. A dose lowering technique was utilized adhering to the principles of ALARA. FINDINGS: The skeletal structures are well mineralized. There are comminuted bilateral nasal bone fractures with displaced and depressed fragments. There is also a depressed fracture through the left frontal process of the maxilla. The bony nasal septum appears intact noting leftward deviation. No additional facial bone fracture is seen. The bony orbits are intact and the orbital contents are within normal limits. The zygomatic arches and pterygoid plates are preserved. The mandible is intact and the temporomandibular joints are maintained. There are no layering blood products within the paranasal sinuses. There is trace mucosal thickening and a 1.9 cm retention cyst in the left maxillary sinus. The remaining paranasal sinuses are clear. The mastoid air cells are well pneumatized. The visualized calvarium and upper cervical spine are maintained. Partially imaged brain parenchyma is within normal limits. There is left premalar soft tissue injury/laceration, as well as soft tissue edema overlying the nasal bones. IMPRESSION: 1. There are comminuted bilateral nasal bone fractures with displaced and depressed fragments. 2. There is also a depressed fracture of the left frontal process of the maxilla. 3. No additional facial bone fracture is seen. The bony orbits are intact. 4. Left premalar soft tissue injury/laceration. ACT 112: Negative or not required by law. Electronically signed by: Mahesh Phillip M.D. 02/16/2025 11:[address] 02/16/25 10:16 CT head/brain wo con CLINICAL HISTORY: facial injury/blunt trauma. TECHNIQUE: Multiple axial CT images of the head were obtained without contrast. A dose lowering technique was utilized adhering to the principles of ALARA. CT DOSE: 858.1 mGy.cm COMPARISON: 08/29/2023 FINDINGS: There is stable cavum septum pellucidum, anatomic variant. No intracranial hemorrhage seen. No mass effect, midline shift, or hydrocephalus. Nasal bone fracture is partially visualized. No skull fracture seen otherwise. IMPRESSION: 1. No acute intracranial findings. 2. Nasal bone fracture. ACT 112: Negative or not required by law. The above report was generated using voice recognition software. It may contain grammatical, syntax or spelling errors. Electronically signed by: Dickson Downs M.D. 02/16/2025 10:50 AM Medications Administered Current Inpatient Medications Ampicillin Sodium/Sulbactam Sodium (Unasyn) 1,500 mg in 100 mls @ 200 mls/hr IV Q6H ANGELA; Protocol Stop: 02/23/25 18:29 PG Care Time/CCT Total # of Minutes Spent Total Time Spent with Patient: Total time spent is greater than 50% in coordination of care (as documented) at patient's floor/unit and/or counseling patient: Coding Level of Care Code 79788 INT INP/OBS CARE 2/55MIN Diagnoses Complex laceration of face, initial encounter S01.91XA Encounter type: initial encounter Open fracture of nasal bone, initial encounter S02.2XXB Encounter type: initial encounter Hyperlipidemia E78.5 Time Spent (min) 55 (1) Complex laceration of face Encounter type: initial encounter Qualified Code(s): S01.91XA - Laceration without foreign body of unspecified part of head, initial encounter (2) Nasal bones, open fracture Encounter type: initial encounter Qualified Code(s): S02.2XXB - Fracture of nasal bones, initial encounter for open fracture
[2025-02-16] MEDS: LACTATED RINGER'S 1,000 ML IV SCH (14:32)
[2025-02-16] MEDS ORDERED: ONDANSETRON INJ 2 MG/ML 2 ML VIAL ONE (14:44)
[2025-02-16] MEDS ORDERED: MIDAZOLAM HCL 1 MG/ML 2ML VIAL ONE (14:44)
[2025-02-16] MEDS ORDERED: DEXAMETHASONE SOD INJ 4 MG/ML VIAL ONE (14:44)
[2025-02-16] MEDS ORDERED: ROCURONIUM BROMIDE 10 MG/ML 5 ML VIAL IV ONE (14:44)
[2025-02-16] MEDS ORDERED: GLYCOPYRROLATE 0.2 MG/ML VIAL ONE (14:44)
[2025-02-16] MEDS ORDERED: LIDOCAINE 2% 2 ML VIAL/AMP(20MG/ML) INFIL ONE (14:44)
[2025-02-16] MEDS ORDERED: PROPOFOL IV EMULSION 10 MG/ML 20 ML VIAL IV ONE (14:44)
[2025-02-16] MEDS ORDERED: SUGAMMADEX SODIUM 200 MG/2 ML VIAL IV ONE (14:47)
[2025-02-16] MEDS ORDERED: HYDROmorphone INJ 1 MG/ML SYRINGE IV PRN (15:00)
[2025-02-16] MEDS ORDERED: PROMETHAZINE HCL 6.25 MG in SODIUM CHLORIDE 0.9% 50 ML IV PRN (15:00)
[2025-02-16] MEDS ORDERED: ATROPINE SULFATE 0.1 MG/ML 10ML SYR IV PRN (15:00)
[2025-02-16] MEDS ORDERED: ONDANSETRON INJ 2 MG/ML 2 ML VIAL IV PRN (15:00)
--- NOTE | 2025-02-16 15:03 | Anesthesiology Consultation ---
Date of Service February 16, 2025 Assessment & Plan (1) Encounter for pre-operative examination: Chart Review Chart Review: Acceptable Risk for Surgery and Patient NOT seen in Pre Admission Testing Consults Requested none History Surgery Operation Date: 02/16/25 13:10 Proposed Procedures p Closed Nasal Reduction - Flaco Sorto, DMD s Repair Left Complex Facial Lacerations - Flaco Sorto, DMD Height/Weight Height: 5 ft 9 in Weight: 73.4 kg Allergies Allergy/AdvReac Type Severity Reaction Status Date / Time No Known Drug Allergies Allergy Unknown Verified 02/16/25 14:30 Medications Home Medications Medication Instructions Recorded Confirmed Last Taken atorvastatin 20 mg tablet 0 mg PO QPM 02/16/25 02/16/25 Unknown Active Medications Generic Name Dose Route Start Last Admin Trade Name Freq PRN Reason Stop Dose Admin Lactated Ringer's 1,000 mls @ 15 mls/hr 02/16/25 14:45 02/16/25 14:32 Lr IV 02/19/25 14:44 15 mls/hr .Q24H ANGELA Administration NPO Date Last Intake of Fluids: 02/16/25 Time Last Intake of Fluids: 08:00 Last Intake of Fluids Comment: Mountain Dew Date Last Intake of Solids: 02/16/25 Time Last Intake of Solids: 19:00 Past Medical History Medical History (Updated 02/16/25 @ 15:03 by Matty Herrera MD) Encounter for pre-operative examination Hyperlipidemia Exercise / Class Metabolic Activity 1 > 8 Run/Swim/Ski/Tennis Past Family History Family History Mother , from breast cancer Breast cancer, Onset Age: 65 Diabetes Myasthenia gravis Grandmother (Maternal) Breast cancer Father Skin cancer Hypertension Denies family history of Ovarian cancer Prostate cancer Myocardial infarction Colorectal cancer Past Surgical History Surgical History Hx of appendectomy 1994 Social History Smoking Status: Never smoker Do You Dip or Chew Tobacco: No Hx Alcohol Use: Yes alcohol intake frequency: holidays/special occasions only Hx Substance Use: No Physical Exam Vital Signs Last Vital Signs Temp 36.9 C 02/16/25 14:26 Pulse 98 H 02/16/25 14:26 Resp 20 02/16/25 14:26 BP 155/94 H 02/16/25 14:26 Pulse Ox 96 02/16/25 14:26 O2 Del Method Room Air 02/16/25 14:26 O2 Flow Rate 0 02/16/25 10:27 Testing Laboratory Results 02/16/25 10:22 02/16/25 10:22
--- NOTE | 2025-02-16 16:50 | Post Operative Brief Note ---
PG Immediate Post Op with CF Date of Surgery February 16, 2025 Pre & Post Diagnosis Operation Date: 02/16/25 13:10 Pre-Op Diagnosis: Left facial lacerations, nasal fracture I identified the patient and participated in the time-out.: Yes Procedure Operation Date: 02/16/25 13:10 Actual Procedures p Closed Nasal Reduction(Not Applicable) - Flaco Sorto DMD s Repair Left Complex Facial Lacerations(Left) - Flaco Sorto DMD Surgeon Flaco Sorto DMD Research Engineer Marine Equipment none Estimated Blood Loss 20 Findings Consistent with Post-Op Diagnosis 9 cm complex facial and nasal laceration open fracture of the nose Anesthesia Type General Complications none Disposition Accompanied Patient To Recovery: Yes
[2025-02-16] MEDS: BUPIVACAINE/EPINEPHRINE 0.5% 1:200,000 1.8 ML CARP ONE (16:56)
[2025-02-16] MEDS: OXYMETAZOLINE 0.05% 30 ML BTL ONE (16:57)
[2025-02-16] MEDS: EPINEPHrine INJ 1 MG/ML AMP ONE (16:58)
[2025-02-16] MEDS: LIDOCAINE 4% INH SOLN 4 ML BTL ONE (16:58)
[2025-02-16] MEDS: BACITRACIN OINT 14 GM TUBE ONE (16:59)
--- NOTE | 2025-02-16 17:35 | Anesthesiology Progress Note ---
Date of Service February 16, 2025 Anesthesia Post Procedure Vital Signs Vital Signs: Temp Pulse Pulse Resp BP BP Pulse Ox 02/16/25 17:26 02/16/25 17:20 36.6 C 85 17 120/80 93 02/16/25 17:10 88 17 122/83 96 02/16/25 17:00 81 23 120/80 95 02/16/25 16:52 36.0 C L 70 12 105/60 97 02/16/25 14:26 36.9 C 98 H 20 155/94 H 96 02/16/25 14:14 02/16/25 14:00 98 H 16 146/95 H 98 02/16/25 13:40 84 12 153/90 H 98 02/16/25 13:00 93 H 22 165/91 H 96 02/16/25 12:20 89 20 167/98 H 98 02/16/25 12:00 89 167/98 H 02/16/25 11:20 90 20 159/97 H 96 02/16/25 10:58 164/96 H 02/16/25 10:57 97 H 15 97 02/16/25 10:27 36.5 C 98 H 17 154/100 H 98 02/16/25 10:27 36.5 C 95 H 20 154/100 H 98 02/16/25 10:26 36.5 C 94 H 17 154/100 H 98 02/16/25 10:26 98 02/16/25 10:23 95 H 02/16/25 10:22 36.5 C 98 H 13 154/100 H Pulse Ox O2 Del Method O2 Del Method O2 Flow Rate 02/16/25 17:26 95 Room Air 02/16/25 17:20 Room Air 02/16/25 17:10 Room Air 02/16/25 17:00 Room Air 02/16/25 16:52 Oxymask 6 02/16/25 14:26 Room Air 02/16/25 14:14 Room Air 02/16/25 14:00 Room Air 02/16/25 13:40 Room Air 02/16/25 13:00 Room Air 02/16/25 12:20 Room Air 02/16/25 12:00 02/16/25 11:20 Room Air 02/16/25 10:58 02/16/25 10:57 08/18/25 10:27 Room Air 02/16/25 10:27 Room Air 0 02/16/25 10:26 Room Air 02/16/25 10:26 Room Air 02/16/25 10:23 02/16/25 10:22 Pain Intensity Left Medial Face: Pain Intensity: 5 Transfer of Care Handoff Completed per policy Notes Mental Status: alert / awake / arousable and participated in evaluation Patient Amnestic to Procedure: Yes Nausea / Vomiting: adequately controlled Pain: adequately controlled Airway Patency, RR, SpO2: stable & adequate BP & HR: stable & adequate Hydration State: stable & adequate Anesthetic Complications: no major complications apparent and Pt Satisfied with anesthetic care
[2025-02-16] MEDS: HYDROCODONE/ACETAMOPHEN 5/325MG TAB PO PRN (18:05)
[2025-02-16] MEDS: AMPICILLIN/SULBACTAM SOD 3,000 MG/100 ML BAG IV SCH (19:36)
[2025-02-16] MEDS: ATORVASTATIN 10 MG TAB PO SCH (20:24)
[2025-02-16] MEDS: OXYMETAZOLINE 0.05% 30 ML BTL NAE PRN (20:24)
[2025-02-17] MEDS: IBUPROFEN 200 MG TAB PO PRN (00:11)
[2025-02-17 03:05] VITALS: RESP 16
[2025-02-17 06:51] LABS: Hematocrit (blood only) 38.5 % (42.0-52.0); Hemoglobin 13.7 g/dl (14.0-18.0); Mean Corpuscular Hemoglobin 30.6 pg (25.0-34.0); Mean Corpuscular Volume 86.1 fL (80.0-100.0); Platelet Count 197 K/uL (130-400); RDW Standard Deviation 39.0 fL (36.4-46.3); Red Blood Count 4.47 M/uL (4.70-6.10); White Blood Count 12.47 K/ul (4.8-10.8)
[2025-02-17 07:08] LABS: Alanine Aminotransferase 21.0 U/L (7-52); Albumin Globulin Ratio 1.5 (0.9-2); Alkaline Phosphatase 84.0 U/L (34-104); Anion Gap 7.0 (3-11); Bilirubin,Total 1.0 mg/dl (0.2-1.0); Blood Urea Nitrogen 13.0 mg/dl (6-23); Calcium 8.9 mg/dl (8.6-10.3); Carbon Dioxide 28.0 mmol/L (21-32); Chloride 102.0 mmol/L (98-107); Creatinine Clr Calc Pharmacy 88.9 ml/min; Globulin 2.6 gm/dl (2.5-4.0); Glucose 133.0 mg/dl (70-99(Fasting)); Potassium 4.0 mmol/L (3.5-5.1); Sodium 137.0 mmol/L (136-145); Total Protein 6.5 gm/dl (6.0-8.3)
--- NOTE | 2025-02-17 09:37 | Operative Report ---
PG Post Operative Report Pre & Post Diagnosis Operation Date: 02/16/25 13:10 Pre-Op Diagnosis: Left facial lacerations, nasal fracture Post-Op Diagnosis: Left facial lacerations, nasal fracture I identified the patient and participated in the time-out.: Yes Procedure Operation Date: 02/16/25 13:10 Actual Procedures p Closed Nasal Reduction(Not Applicable) - Flaco Sorto DMD s Repair Left Complex Facial Lacerations(Left) - Flaco Sorto DMD Surgeon Flaco Sorto, ESTHER Retail Store Assistant none Estimated Blood Loss 20 Findings Consistent with Post-Op Diagnosis Specimens none Anesthesia Type General Complications none Disposition Accompanied Patient To Recovery: Yes Indications 9 cm complex left facial laceration open treatment of nasal bone fractures Description of Procedure Operative report CPT 60307 opened reduction of nasal fracture with stabilization splint OEC03--B94.2XXB UNZ71--D60.8XA repair complex 9 cm cheek laceration repair with foreign body p resent CPT 07831 for the first 7.5 cm of a 9 cm laceration (complex) CPT 95470 for the remaining 1.5 cm Once cleared for surgery general anesthesia was achieved, the eyes were protected by the anesthesia dept criteria. A time out was take for patient ID, equipment and position verification once all agreed the procedure began. Local anesthesia was given into the area using Marcaine with a vasoconstrictor ( appox 6 ml ). Once a surgical level of anesthesia was obtained and the local anesthesia was given time for the blocks the surgery was started. I turned my attention to the 9 cm complex laceration left cheek/nasal area. Facial laceration repair: The repair of a 9 cm complex irregular laceration involving the bridge of the nose deep to the nasal bone and continuing across the cheek deep to muscles for a total of 9 cm. The margins were abraded by the universal grinder operator brushes of the hand tool I reprepped the laceration and irrigated with an NS then turned my attention to the laceration. The laceration was a complex 9 cm long irregular wound. It was very irregular and deep, the muscle was exposed as was the bone. I used an electrocautery instrument and cauterized any bleeders. The wound was irrigated and scrubbed. I then inspected the bone and found displacement of the left nasal and maxillary bones as was seen on the CT scan. I will address the nasal fracture after the repair of the complex laceration. The closure of the laceration was now started using 5-0 Vicryl suture to line up the deep muscles and periosteum. Once I accomplished this the sub-q and skin was aligned up very nicely with a 6- 0 nylon suture. A very nice cosmetic closure of this irregular laceration was achieved. Steri Strips were placed. Description of Procedure for the open reduction of the fractured nose Operative report for CPT 59597 opened reduction of nasal fracture with stabilization splint QCU60--P74.2XXB Diagnosis: Displaced opened fracture of nasal bones Procedure: Opened reduction of nasal bone fracture Operation: I turned my attention to the nasal bones the right/left nasal bones were impacted due to the overall depression and flatting of the nasal bridge. As a result of the injury the bridge was depressed and the right nasal bone appeared to be depressed outward while the left was crushed inwards. Given the the laceration exposed the left nasal bones the extent of the left side fractures were seen clinically. During the closure of the laceration I was able to use sutures to close the soft tissue over the fractured bone. While doing the soft tissue closure I used an epinephrine solution with wetted gauze packing and inserted into the nose to help limit bleeding during the manipulation. Now using a flat elevator I was able to apply upward and lateral pressure while manipulating the bone intranasal to achieve an anatomic form to the bridge, right and left side of the nasal bone fractures. I now turned my attention to the left side of the nasal fracture and looking directly at the fractured bones and using the nasal elevator intranasal I was able to apply intra nasal pressure to left depressed nasal bone in order to reposition the left side outwards. Once both sides were reduced the nose was now symmetric. The septum and columella looked to be well aligned. I was pleased with the anatomic reduction and stability of the fractures. I inspected intranasal, all the mucosal tissue were all WNL and I irrigated any clots and suctioned the throat. Bleeding was minimal. I now completed the facial/nasal laceration repair (see above) Once the laceration was completed and the bone of the nose was repositioned the Hanover splint was placed. Hanover splint placement: Finally a nasal splint (Hanover splint) was modified and placed/ taped into place as per protocol. Clinically the nose and septum were lined up very well. I inspected the nose to insure all bleeding was controlled and Jaylan splint in place. Completion: I removed the throat pack and suctioned the throat. All instrument and sponge count was correct. The patient was allowed to awake from the anesthesia. Once full awake the anesthesia tube was removed and the patient was taken to the recovery room with all vital sign stable. The patient tolerated the surgery very well. Post op plan: I will follow in my office, Rx and instructions will be given upon discharge. Post op follow up set up for Jaylan splint removal in my office Once the case was completed I inspected the sites to insure all bleeding was controlled. the patient was allowed to awake from the anesthesia. Once full awake the anesthesia tube was removed and the patient was taken to the recovery room with all vital sign stable. The patient tolerated the surgery very well. I will follow the patient in my office, Rx and instructions will be given upon discharge. I attest to the content of the Intraoperative Record and any orders documented therein. Any exceptions are noted below.
[2025-02-17 11:27] VITALS: TEMP 98.2
--- NOTE | 2025-02-17 12:47 | Progress Note ---
Date of Service February 17, 2025 Assessment & Plan Admission and Anticipated Discharge Date Admission Date: February 16, 2025 Subjective Post OP note for facial lacerations at 24 hours The repaired laceration looks great. The tissue is soft and the scar has excellent color match. The wound edges are very flat without hypertrophy. Over all the result is excellent and the patient is very please. The nasal fracture repair looks good and the splint is stable. He will be coming to my office on Feb 19 at 3:30 for splint removal and wound check. He is OK for discharge from oral surgery point of view I have ordered discharge antibiotics and pain meds. I see no sign of infection or wound healing issues. Reviewed home care RTC to see Dr Sorto Feb 19 at 3:30 Results & Data Vital Signs (Past 12 Hours) Vital Signs Temp Pulse Pulse Resp BP BP Pulse Ox 02/17/25 11:27 36.8 C 94 H 16 124/65 96 02/17/25 07:39 36.6 C 78 16 127/72 97 02/17/25 07:31 02/17/25 07:15 60 02/17/25 03:04 36.8 C 76 16 130/77 96 O2 Del Method 02/17/25 11:27 Room Air 02/17/25 07:39 Room Air 02/17/25 07:31 Room Air 02/17/25 07:15 02/17/25 03:04 Room Air PG Care Time/CCT Total # of Minutes Spent Total Time Spent with Patient: Total time spent is greater than 50% in coordination of care (as documented) at patient's floor/unit and/or counseling patient: Coding Level of Care Code None
[2025-02-17 15:09] VITALS: BP 125/68; PULSE 78; O2SAT 97
--- NOTE | 2025-02-17 15:54 | Discharge Summary ---
Discharge Summary Date of Service February 17, 2025 Principal Dx & Hospital Course #1 = Principal Diagnosis (1) Complex laceration of face: patient has hyperlipidemia and on 02/16 has large left side facial laceration and nasal bridge laceration his CT scan show b/l nasal bone fracture with displace fragment. also found depressed fracture of left frontal process of maxillary he's was seen by Dr. Sorto and s/p close nasal reduction and repair of left co mplex facial laceration on 02/16 he was maintain on unasyn and his sensation improved cleared by oral maxillary facial surgery and was dc on augment and nasal spray (ocean spray 0.65%) and nasal decongestant (juan pablo-synephrine) for next 2-3 days Portis the nose 3 times daily with saline solution beginning the evening after surgery. This can be accomplished with an [place] Saline Portis or Simply Saline bottle Also, spray the nose with nasal decongestant (such as Afrin or Juan Pablo- Synephrine) two sprays to each nostril twice daily for two days following the procedure. Hot steam showers as needed are very helpful in relieving nasal congestion and crusting or scabbing in the nose. Sleep with the head elevated for the first 48 hours; this will minimize pain and congestion. You may use two pillows to do this or sleep in a reclining chair. You may get the nasal cast wet in the shower 48 hours after your procedure. You may let the cast air dry and dab the area around it with a towel. (2) Nasal bones, open fracture: (3) Hyperlipidemia: Plan Mr. Yovani Rosario ia a 44 yo male with PMH of hyperlipidemia. 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 large laceration of the left side of the face. cross over to the nose to the nasal bridge. his CT scan show comminuted b/l nasal bone fracture with displaced and depressed fragment. also found depressed fracture of the left frontal process of the maxilla. left premalara soft tissue injury patient seen by oral maxillary surgery Dr. Sorto, plan for close/open reduction of the nasal fracture and repair of the complex facial laceration. started on unasyn. 1. complex deep laceration from the bridge of the nose across the cheek 2. communicated b/l nasal bone fractures 3. depressed fracgture of the left frontal process of the maxillary 4. HLD on lipitor plan closed/open reduction of the nasal fracture repair of the complex facial laceration c/w unasyn. discussed avoid of sun in post-op period. Admission HPI Per Admitting Provider Mr. Yovani Rosario is a 44 yo male with PMH of hyperlipidemia. on 02/16/2025, he's presented to [facility] with trauma alert. he's was using a feller hand in his home garage when it's kicked back up and hit him in the face he's has a large laceration to the left side of the face that cross of the left nose to the nasal bridge he has CT head which found nasal bone fracture, has had normal neck range of motion he's was s/p tetanus shot and IV unasyn. seen by lotus notes administrator, Dr. Flaco Sorto, plan for surgery today on interview, he's denied chest pain, denied shortness of breath he's mentioned headache episode after receiving morphine. Discharge Exam VITALS: Reviewed. WEIGHT/BMI reviewed. GEN: Healthy appearing, well-developed, NAD. -Head: NC/AT; HEENT: nasal scar closed; no discharge noted. CV: RRR, no m/r/g. LUNGS: CTAB, no w/r/c. ABD: Soft, NT/ND, NBS, no masses or organomegaly. : N/A MSK: No deformities, Normal gait. EXT: No clubbing, cyanosis, or edema. NEURO: Ambulating with no limitations. Normal muscle strength and tone. No focal deficits. Discharge Plan Discharge Items Patient Disposition: Home - Self-Care Reason For Visit: FACIAL LACERATION, CONCUSSION, HEADACHE Discharge Diagnosis: s/p facial/nasal injury Condition on Discharge: Fair Activity: As commented below Activity Comment: wait until I see you later in the week to remove the nasal splint Lifting: No more than 10 pounds Bathing: No limitations and Keep incision dry Exercise/Sports: Wait until after follow-up appointment Driving/Machine Use: Resume 3 days after discharge Weightbearing: Full weightbearing Non-emergency contact: Surgeon Call non-emergency contact if: you have any medication questions, your symptoms worsen, your temperature is above 101.5, your wound has increased redness, your wound has increased drainage and your wound pain has increased Follow-up/Referrals: Taryn Ricci, [Primary Care Provider] - 02/24/25 9:20 am Flaco Sorto DMD [Physician] - Diet: Regular Diet Texture: Easy to Chew Addtl Attending Provider Instructions: ADDITIONAL ACTIVITY RECOMMENDATIONS: Post-operative Instructions Nasal Bone Fracture General: You will wear an external nasal cast for approximately 3-5 days following the procedure. On occasion, nasal sponge packing is placed to minimize post-operative bleeding. The nose may be congested or obstructed in the first few to several days following the procedure. This is relieved with saline spray and decongestant spray as directed by your doctor (see Nasal Care following the Surgery below). Mild to moderate nasal discomfort, bruising under the eyes (black eyes) and oozing of blood from the nose is expected in the first 48 hours. Diet: You may have liquids by mouth once you have awakened from anesthesia. If you tolerate the liquids without significant nausea or vomiting then you may take solid foods without restrictions. If nausea is persistent, an anti-emetic medication may be prescribed for you. A mild sore throat for 2-3 days following the procedure is expected. Pain control: Patients report mild to moderate nasal pain, congestion and headache for a few to several days following surgery. This is usually well controlled with prescription strength oral pain medications (Vicodin). Please take the pain medication prescribed when needed. You may instead use [id number] non-steroidal anti-inflammatory drugs (NSAIDS) such as ibuprofen or naproxen (Motrin, Naprosyn, and Advil) Activity: No heavy lifting, straining or strenuous exercise for 1 week following the surgery. You should plan for 3-5 away from work. If your job requires manual labor, lifting or straining then you should be out of work for 1 week or limited to light duty until the 1 week post-op manuel. Walking and other light activities are encouraged after the first 24 hours. Nasal care following the surgery: Portis the nose 3 times daily with saline solution beginning the evening after surgery. This can be accomplished with an [place] Saline Portis or Simply Saline bottle Also, spray the nose with nasal decongestant (such as Afrin or Juan Pablo-Syne phrine) two sprays to each nostril twice daily for two days following the procedure. Hot steam showers as needed are very helpful in relieving nasal congestion and crusting or scabbing in the nose. Sleep with the head elevated for the first 48 hours; this will minimize pain and congestion. You may use two pillows to do this or sleep in a reclining chair. You may get the nasal cast wet in the shower 48 hours after your procedure. You may let the cast air dry and dab the area around it with a towel. Follow-up appointment: FEBRUARY 19 at 3:[address] Sorto if you have any questions regarding your post-operative pain control, bleeding, fever,headaches. Dr Sorto [phone] [email or web address] * [place] teeth after every meal. It is very important to keep your mouth clean to prevent infection. * Starting tonight rinse with the Peridex as directed then 2 x a day * it is very important to keep well hydrated, this prevents fever and possible dry socket pain * keep the steri strips and nasal splint in place until I see you later in the week * will review wound care when I see you in the office to remove the nasal splint. SPECIAL CARE INSTRUCTIONS: *It is not uncommon that between day 2-4 that your swelling will be at its worst this is very normal, do not be alarmed. * Keep ice on the side of your face for the next 24 to 36 hours. This will help keep the swelling down. * A certain amount of bleeding is to be expected. It is often possible to control mild oozing by placing folded gauze over the area and biting down for 30 minutes. If you are unable to control excessive bleeding, call Dr Sorto at [phone] * You may experience some discomfort for a few days. If pain or swelling increases, Call Dr Sorto * Return to the office for a follow up check up on: * office address--[address] phone # [phone] Pending Studies at Discharge: No Stand-Alone Forms: My [facility] FIXO, Smoking Cessation Medications and DC Order Prescriptions: New Saline Nasal 0.65 % aerosol,spray 1 spray intranasal Q4H 14 Days Qty: 44 1RF oxymetazoline [Nasal Portis (oxymetazoline)] 0.05 % Portis,Non-Aerosol 2 spray ALAN Q6HWA 3 Days Qty: 15 1RF ibuprofen 200 mg Tablet 400 mg PO Q4H 14 Days Qty: 30 1RF Continued hydrocodone-acetaminophen 5-325 mg tablet 1 tab PO Q4H PRN (Reason: pain) Qty: 14 0RF atorvastatin 20 mg tablet 0 mg PO QPM Patient Comments: 02/16- last filled 12/25 30 day supply #30 amoxicillin-pot clavulanate 875-125 mg tablet 1 tab PO Q12H 12 Days Qty: 20 0RF Discharge Orders: Discharge Order (Routine); Ordered 02/17/25 Ordered By: Shaun Barbour/Other Patient Handouts: ED Nose Fracture, with X-Ray, ED Laceration Face Stitches Tape Admission Data Admit Date/Time: 02/16/25 13:19 Attending Provider: Shaun Yepez Admit Provider: Shaun Yepez Primary Care Provider: Taryn Ricci Other Providers: Shaun Yepez; Flaco Sorto Other Interventions: Discharge Summary Assessment (RN) Last Done: 02/17/25 15:21 Hospital Stay Data Consultations 02/16/25 12:49 ED Decision to Admit Stat 02/16/25 12:50 Consult Oromaxillofacial Surgery Stat Procedures Performed Operation Date: 02/16/25 13:10 Actual Procedures p Closed Nasal Reduction(Not Applicable) - Flaco Sorto DMD s Repair Left Complex Facial Lacerations(Left) - Flaco Sorto DMD Diagnostic Imagining Performed 02/16/25 10:16 CT face [CT facial bones wo con] Stat CT head/brain wo con Stat Pending Results Patient Have Any Pending Studies at Discharge: No Discharge Instructions Given to Patient (Per Discharging Provider) ADDITIONAL ACTIVITY RECOMMENDATIONS: Post-operative Instructions Nasal Bone Fracture General: You will wear an external nasal cast for approximately 3-5 days following the procedure. On occasion, nasal sponge packing is placed to minimize post-operative bleeding. The nose may be congested or obstructed in the first few to several days following the procedure. This is relieved with saline spray and decongestant spray as directed by your doctor (see Nasal Care following the Surgery below). Mild to moderate nasal discomfort, bruising under the eyes (black eyes) and oozing of blood from the nose is expected in the first 48 hours. Diet: You may have liquids by mouth once you have awakened from anesthesia. If you tolerate the liquids without significant nausea or vomiting then you may take solid foods without restrictions. If nausea is persistent, an anti-emetic medication may be prescribed for you. A mild sore throat for 2-3 days following the procedure is expected. Pain control: Patients report mild to moderate nasal pain, congestion and headache for a few to several days following surgery. This is usually well controlled with prescription strength oral pain medications (Vicodin). Please take the pain medication prescribed when needed. You may instead use [id number] non-steroidal anti-inflammatory drugs (NSAIDS) such as ibuprofen or naproxen (Motrin, Naprosyn, and Advil) Activity: No heavy lifting, straining or strenuous exercise for 1 week following the surgery. You should plan for 3-5 away from work. If your job requires manual labor, lifting or straining then you should be out of work for 1 week or limited to light duty until the 1 week post-op manuel. Walking and other light activities are encouraged after the first 24 hours. Nasal care following the surgery: Portis the nose 3 times daily with saline solution beginning the evening after surgery. This can be accomplished with an [place] Saline Portis or Simply Saline bottle Also, spray the nose with nasal decongestant (such as Afrin or Juan Pablo- Synephrine) two sprays to each nostril twice daily for two days following the procedure. Hot steam showers as needed are very helpful in relieving nasal congestion and crusting or scabbing in the nose. Sleep with the head elevated for the first 48 hours; this will minimize pain and congestion. You may use two pillows to do this or sleep in a reclining chair. You may get the nasal cast wet in the shower 48 hours after your procedure. You may let the cast air dry and dab the area around it with a towel. Follow-up appointment: FEBRUARY 19 at 3:[address] Sorto if you have any questions regarding your post-operative pain control, bleeding, fever,headaches. Dr Sorto [phone] * [place] teeth after every meal. It is very important to keep your mouth clean to prevent infection. * Starting tonight rinse with the Peridex as directed then 2 x a day * it is very important to keep well hydrated, this prevents fever and possible dry socket pain * keep the steri strips and nasal splint in place until I see you later in the week * will review wound care when I see you in the office to remove the nasal splint. SPECIAL CARE INSTRUCTIONS: *It is not uncommon that between day 2-4 that your swelling will be at its worst this is very normal, do not be alarmed. * Keep ice on the side of your face for the next 24 to 36 hours. This will help keep the swelling down. * A certain amount of bleeding is to be expected. It is often possible to control mild oozing by placing folded gauze over the area and biting down for 30 minutes. If you are unable to control excessive bleeding, call Dr Sorto at [phone] * You may experience some discomfort for a few days. If pain or swelling increases, Call Dr Sorto * Return to the office for a follow up check up on: * office address--[address] [place], [place] [address]karen [place]. phone # [phone] Total Time Total Time Spent Total Time Spent (In Minutes): 35 Coding Level of Care Code 60273 IN/OBS DISCH 30 MIN/LESS Diagnoses Complex laceration of face, initial encounter S01.91XA Encounter type: initial encounter Open fracture of nasal bone, initial encounter S02.2XXB Encounter type: initial encounter Hyperlipidemia E78.5 Time Spent (min) 25
== END 2025-02-17 18:21 | disposition home or self-care (01) | DRG 141 ==
LOC: ED 10:11 → 2W 13:19